=== PATIENT | female | born 1940 | race Caucasian/White ===

== ENCOUNTER 2018-10-16 19:06 | Emergency (ER) | payer MEDICARE, OTHER ==
[~2018-10-16] VITALS: Ht 154.9 cm; Wt 90.7 kg
[2018-10-16] MEDS ORDERED: COUMADIN1 MG PO (19:19)
[2018-10-16] MEDS ORDERED: MILK OF MA400 MG/5 M PO (20:01)
[2018-10-16] MEDS ORDERED: BREO ELLIPTA 21 EACH INH (20:02)
[2018-10-16] MEDS ORDERED: BUSPIRONE HCL10 MG PO (20:02)
[2018-10-16] MEDS ORDERED: ASPIRIN325 MG PO (20:02)
[2018-10-16] MEDS ORDERED: CYMBALTA30 MG PO (20:03)
[2018-10-16] MEDS ORDERED: DIPYRIDAMOLE50 MG PO (20:03)
[2018-10-16] MEDS ORDERED: CLONAZEPAM0.5 MG PO (20:03)
[2018-10-16] MEDS ORDERED: ACID CONTROLLER20 MG PO (20:03)
[2018-10-16] MEDS ORDERED: GABAPENTIN300 MG PO (20:04)
[2018-10-16] MEDS ORDERED: FEOSOL325 MG PO (20:04)
[2018-10-16] MEDS ORDERED: FUROSEMIDE40 MG PO (20:04)
[2018-10-16] MEDS ORDERED: MULTIVITAMINS1 EAC7 PO (20:05)
[2018-10-16] MEDS ORDERED: PLAVIX75 MG PO (20:05)
[2018-10-16] MEDS ORDERED: LAMICTAL100 MG PO (20:05)
[2018-10-16] MEDS ORDERED: VITAMIN C250 MG PO (20:06)
[2018-10-16] MEDS ORDERED: K-TAB ER20 MEQ PO (20:06)
[2018-10-16] MEDS ORDERED: PRAVASTATIN SOD40 MG PO (20:06)
== END 2018-10-16 20:42 | disposition home or self-care (01) ==
LOC: ED 19:06
DX: S00.83XA Contusion of other part of head, initial encounter (principal); W05.0XXA Fall from non-moving wheelchair, initial encounter; I48.91 Unspecified atrial fibrillation; Z88.0 Allergy status to penicillin; Z88.2 Allergy status to sulfonamides; Z88.8 Allergy status to other drugs, medicaments and biological substances; Z79.899 Other long term (current) drug therapy
CPT/HCPCS: 70450; 99284-25

== ENCOUNTER 2018-10-29 18:34 | Emergency (ER) | payer MEDICARE, OTHER ==
[~2018-10-29 18:34] MED LIST: ACID CONTROLLER20 MG PO; ASPIRIN325 MG PO; BREO ELLIPTA 21 EACH INH; BUSPIRONE HCL10 MG PO; CLONAZEPAM0.5 MG PO; COUMADIN1 MG PO; CYMBALTA30 MG PO; DIPYRIDAMOLE50 MG PO; FEOSOL325 MG PO; FUROSEMIDE40 MG PO; GABAPENTIN300 MG PO; K-TAB ER20 MEQ PO; LAMICTAL100 MG PO; MILK OF MA400 MG/5 M PO; MULTIVITAMINS1 EAC7 PO; PLAVIX75 MG PO; PRAVASTATIN SOD40 MG PO; VITAMIN C250 MG PO
--- NOTE | 2018-10-30 15:39 | EKG ---
[facility] [address] [place], [place] [address] Signed Normal sinus rhythm Normal ECG No previous ECGs available Confirmed by CLARISA CRAWFORD DO ([id number]) on 10/30/2018 3:39:35 PM Electronically Signed By: CLARISA CRAWFORD DO 10/30/18 1539 PATIENT NAME: MELIDADELLA Electrocardiogram DATE OF : 40 PHYSICIAN: CLARISA CRAWFORD DO REPORT #: [id number] REPORT IS CONFIDENTIAL AND NOT TO BE RELEASED WITHOUT AUTHORIZATION
== END 2018-10-29 22:15 | disposition home or self-care (01) ==
LOC: ED 18:34
DX: S51.011A Laceration without foreign body of right elbow, initial encounter (principal); S61.512A Laceration without foreign body of left wrist, initial encounter; S41.112A Laceration without foreign body of left upper arm, initial encounter; S00.03XA Contusion of scalp, initial encounter; I10 Essential (primary) hypertension; F41.9 Anxiety disorder, unspecified; Z88.0 Allergy status to penicillin; Z88.2 Allergy status to sulfonamides; Z88.6 Allergy status to analgesic agent; Z88.8 Allergy status to other drugs, medicaments and biological substances; Z79.82 Long term (current) use of aspirin; Z79.899 Other long term (current) drug therapy; W01.198A Fall on same level from slipping, tripping and stumbling with subsequent striking against other object, initial encounter
CPT/HCPCS: 70450; 73080; 73110; 93005; 93010; 96374; 96375; 99284-25; J2405; J3010